=== PATIENT | male | born 2000 | race Caucasian/White ===

== ENCOUNTER 2018-01-03 21:24 | Emergency (ER) | payer OTHER ==
[~2018-01-03] VITALS: Ht 177.8 cm; Wt 65.4 kg
[~2018-01-03 21:24] MED LIST: ADVAIR 500-501 EACH IH; ALBUTEROL17 G1 IH; BENTYL20 MG PO; CLARITIN5 MG PO; GABAPENTIN300 MG PO; LAMICTAL100 MG PO; PEPCID AC10 MG PO; ZOFRAN8 MG PO
[2018-01-03 23:25] VITALS: BP 124/65
== END 2018-01-03 23:26 | disposition home or self-care (01) ==
LOC: EME 21:24
DX: S01.01XA Laceration without foreign body of scalp, initial encounter (principal); S06.0X0A Concussion without loss of consciousness, initial encounter; W20.8XXA Other cause of strike by thrown, projected or falling object, initial encounter; Z23 Encounter for immunization; Z88.6 Allergy status to analgesic agent
CPT/HCPCS: 99281; 99284